=== PATIENT | female | born 1955 | race Caucasian/White ===

== ENCOUNTER 2017-01-13 14:17 | Emergency (ER) | payer OTHER ==
[~2017-01-13] VITALS: Ht 162.6 cm; Wt 73.9 kg
[2017-01-13 15:16] VITALS: BP 196/108
--- NOTE | 2017-01-13 16:50 | NUR ---
Patient ambulated to bed 03.
--- NOTE | 2017-01-13 16:52 | NUR ---
Note undone in EDM - 01/13/17 at 1809 by [facility] 61F BIB FAMILY C/O PRODUCTIVE COUGH W/ WHITE/YELLOW PHLEGM X 3 WEEKS; BL LUNG SOUNDS CLEAR, RR EVEN/UNLABORED AT THIS TIME; PT C/O PRESSURE TO BL UPPER CHEST, NON-RADIATING, 5/10 X 3 WEEKS; PT A&OX4, PERRL, DENIES N/V/D AT THIS TIME; HX: HTN, DM; STEADY GAIT; PT RESTING IN BED W/ HOB ELEVATED AND IN LOWEST POSITION; POSITIONED FOR COMFORT; ER MADE AWARE OF STATUS. WILL CONTINUE TO MONITOR.
--- NOTE | 2017-01-13 16:52 | NUR ---
61F BIB FAMILY C/O PRODUCTIVE COUGH W/ WHITE/YELLOW PHLEGM X 3 WEEKS; BL LUNG SOUNDS CLEAR, RR EVEN/UNLABORED AT THIS TIME; PT C/O PRESSURE TO BL UPPER CHEST W/ COUGHING, NON-RADIATING, 5/10 X 3 WEEKS; PT A&OX4, PERRL, DENIES N/V/D AT THIS TIME; HX: HTN, DM; STEADY GAIT; PT RESTING IN BED W/ HOB ELEVATED AND IN LOWEST POSITION; POSITIONED FOR COMFORT; ER MD MADE AWARE OF STATUS. WILL CONTINUE TO MONITOR.
--- NOTE | 2017-01-13 16:55 | NUR ---
Dr. Gar evaluating patient at bedside.
[2017-01-13] MEDS ORDERED: PROMETH/CODEINE 6.25-10MG/5ML 5 ML UDC PO ONE (17:10)
[2017-01-13 17:42] VITALS: BP 182/92
--- NOTE | 2017-01-13 17:42 | NUR ---
Patient discharged with W/ BP 182/92; DENIES HEADACHE, DIZZINESS, VISION CHANGES AT THIS TIME. ER MD DR. NEGRON NOTIFIED AND STATES OK TO DISCHARGE PT; ADVISED PT TO FOLLOW UP WITH PRIMARY CARE PHYSICIAN. VERBALIZES FEELING BETTER AFTER ADMINISTRATION OF MEDICATION ORDERED PER ER MD DR. NEGRON. Patient alert, oriented and verbalized understanding of instructions. Ambulatory with steady gait. All questions addressed prior to discharge. ID band removed. Patient advised to follow up with PMD. Rx of ZITHROMAX Z-ANNA 250MG TAB & PROMETHAZINE DM 6.25MG-15MG/5ML given. Patient educated on indication of medication including possible reaction and side effects. Opportunity to ask questions provided and answered.
== END 2017-01-13 17:42 | disposition home or self-care (01) ==
LOC: MED 14:17
DX: J20.9 Acute bronchitis, unspecified (principal); E11.9 Type 2 diabetes mellitus without complications; I10 Essential (primary) hypertension; Z88.0 Allergy status to penicillin